=== PATIENT | female | born 1980 | race Asian ===

== ENCOUNTER 2018-02-22 11:01 | Emergency (ER) | payer OTHER ==
[~2018-02-22] VITALS: Ht 162.6 cm; Wt 65.8 kg
[2018-02-22 11:19] VITALS: Ht 162.6 cm; Wt 65.8 kg
[2018-02-22 12:26] VITALS: BP 122/66
== END 2018-02-22 12:26 | disposition home or self-care (01) ==
LOC: ED 11:01
DX: N61.0 Mastitis without abscess (principal)